=== PATIENT | male | born 1960 | race Caucasian/White ===

== ENCOUNTER 2018-05-11 07:54 | Emergency (ER) | payer BC ==
[2018-05-11 08:15] VITALS: BP 158/108
--- NOTE | 2018-05-11 08:30 | UC ---
Respiratory Complaint HPI - HPI Summary HPI Summary: cough x 2 weeks cough is productive with yellow sputum, + cold symptoms with nasal congestion, pnd no fever, no chills, no wheezing or sob - History of Current Complaint Chief Complaint: UCRespiratory Stated Complaint: CHEST CONGESTION/COUGH Time Seen by Provider: 05/11/18 08:16 Hx Obtained From: Patient Onset/Duration: Gradual Onset, Lasting Weeks - 2, Still Present Timing: Constant Severity Initially: Moderate Severity Currently: Moderate Pain Intensity: 0 Character: Cough: Nonproductive Aggravating Factors: Exertion, Deep Breaths Alleviating Factors: Nothing Associated Signs And Symptoms: Positive: Chills, URI, Nasal Congestion. Negative: Dyspnea, Fever, Pleuritic Chest Pain, Calf Pain, Edema - Allergies/Home Medications Allergies/Adverse Reactions: Allergies Allergy/AdvReac Type Severity Reaction Status Date / Time No Known Allergies Allergy Verified 05/11/18 08:11 Home Medications: Home Medications Cough Medicine 1 tab PO Q6H PRN 05/11/18 [History] PMH/Surg Hx/FS Hx/Imm Hx Cardiovascular History: Hypertension - Surgical History Surgical History: Yes Surgery Procedure, Year, and Place: vasectomy - Family History Known Family History: Positive: Hypertension - Social History Alcohol Use: None Substance Use Type: None Smoking Status (MU): Never Smoked Tobacco Review of Systems Constitutional: Negative Skin: Negative Eyes: Negative ENT: Nasal Discharge Respiratory: Cough Is Patient Immunocompromised?: No All Other Systems Reviewed And Are Negative: Yes Physical Exam Triage Information Reviewed: Yes Appearance: Well-Appearing, No Pain Distress, Well-Nourished Vital Signs: Initial Vital Signs Temp 97.6 F 05/11/18 08:09 Pulse 77 05/11/18 08:09 Resp 16 05/11/18 08:09 BP 158/108 05/11/18 08:09 Pulse Ox 99 05/11/18 08:09 Vital Signs Reviewed: Yes Eye Exam: Normal Eyes: Positive: Conjunctiva Clear ENT: Positive: Normal ENT inspection, Hearing grossly normal, Pharynx normal, Nasal congestion Neck exam: Normal Neck: Positive: Supple, Nontender, No Lymphadenopathy Respiratory: Positive: Chest non-tender, Lungs clear, Normal breath sounds, No respiratory distress Cardiovascular: Positive: RRR, No Murmur, Pulses Normal Skin Exam: Normal UC Diagnostic Evaluation - Laboratory O2 Sat by Pulse Oximetry: 99 Respiratory Course/Dx - Differential Dx/Diagnosis Provider Diagnoses: viral bronchitis. hypertension Discharge - Sign-Out/Discharge Documenting (check all that apply): Patient Departure All imaging exams completed and their final reports reviewed: No Studies - Discharge Plan Condition: Stable Disposition: HOME Prescriptions: Benzonatate CAP* [Tessalon 100 MG CAP*] 100 mg PO TID #21 cap predniSONE [Prednisone 20 MG TAB] 20 mg PO BID #10 tablet Patient Education Materials: Acute Bronchitis (ED), Hypertension (ED) Referrals: Faith Min MD [Primary Care Provider] - 7 Days Additional Instructions: please start taking your bp meds daily monitor your blood pressure follow up with your pcp in one week - Billing Disposition and Condition Condition: STABLE Disposition: Home
== END 2018-05-11 08:28 | disposition home or self-care (01) ==
LOC: UCCORT 07:54
DX: J20.8 Acute bronchitis due to other specified organisms (principal); I10 Essential (primary) hypertension
CPT/HCPCS: 99202; G0463